=== PATIENT | male | born 1955 | race Caucasian/White ===

== ENCOUNTER 2016-07-11 10:40 | Inpatient (IN) | payer MEDICARE, OTHER ==
[~2016-07-11] VITALS: Ht 170.2 cm; Wt 84.1 kg
[2016-07-11 11:58] LABS: HEMOGLOBIN 13.2 gm/dl (14.0-17.5); RED BLOOD COUNT 4.47 M/UL (4.20-5.50); WHITE BLOOD COUNT 6.8 K/UL (4.5-11.0)
[2016-07-11 12:39] LABS: BUN/CREATININE RATIO 12 (0-10)
[2016-07-11] MEDS ORDERED: PRINIVIL5 MG PO (20:05)
[2016-07-11] MEDS ORDERED: FOLIC ACID 1 MG1 MG PO (20:05)
[2016-07-11] MEDS ORDERED: ZANTAC150 MG PO (20:05)
[2016-07-11] MEDS ORDERED: TEGRETOL 200 M200 MG PO (20:06)
[2016-07-11] MEDS ORDERED: GLUCOPHAGE 500500 MG PO (20:06)
[2016-07-11] MEDS ORDERED: AMMONIUM LACTA140 GM TP (20:07)
[2016-07-11] MEDS ORDERED: ZOCOR5 MG PO (20:07)
[2016-07-11] MEDS ORDERED: DEBROX15 ML OT (20:08)
[2016-07-11] MEDS ORDERED: CLARITIN10 M2 PO (20:08)
[2016-07-12 04:41] LABS: HEMOGLOBIN 13.8 gm/dl (14.0-17.5); RED BLOOD COUNT 4.61 M/UL (4.20-5.50)
[2016-07-12 04:43] LABS: WHITE BLOOD COUNT 9.2 K/UL (4.5-11.0)
[2016-07-12 05:08] LABS: BUN/CREATININE RATIO 18 (0-10)
[2016-07-13] MEDS ORDERED: ECOTRIN81 MG PO (14:28)
[2016-07-13] MEDS ORDERED: ELIQUIS5 MG PO (14:29)
[2016-07-13] MEDS ORDERED: AMIODARONE HCL200 MG PO (14:30)
== END 2016-07-13 15:51 | disposition home or self-care (01) | DRG 309 ==
LOC: ER1 10:40 → ZEROF 15:40 → PROG CARE 15:40 → MED SURG 4 18:17 → PROG CARE 07-12 12:00
PROVIDERS: Emergency Medicine; ADMIT Internal Medicine Infectious Disease
PROC: 4A00X4Z Measurement of Central Nervous Electrical Activity, External Approach (ICD-10-PCS; principal; 2016-07-12)
DX: I48.92 Unspecified atrial flutter (principal); G45.9 Transient cerebral ischemic attack, unspecified; I48.0 Paroxysmal atrial fibrillation; G40.909 Epilepsy, unspecified, not intractable, without status epilepticus; E11.9 Type 2 diabetes mellitus without complications; D64.9 Anemia, unspecified; E78.5 Hyperlipidemia, unspecified; K21.9 Gastro-esophageal reflux disease without esophagitis; I10 Essential (primary) hypertension; F17.290 Nicotine dependence, other tobacco product, uncomplicated; F79 Unspecified intellectual disabilities; E78.00 Pure hypercholesterolemia, unspecified; I44.30 Unspecified atrioventricular block; J30.2 Other seasonal allergic rhinitis; Z79.01 Long term (current) use of anticoagulants; Z79.899 Other long term (current) drug therapy; Z98.49 Cataract extraction status, unspecified eye
CPT/HCPCS: ECHO; 36415; 70450; 70551; 71010; 80048; 80053; 80061; 80156; 81001; 82550; 82553; 82962; 83036; 83690; 83735; 83874; 84439; 84443; 84484; 85025; 85027; 87086; 93005; 93306; 95819; 96374; 99285; G0378; J0282; J2250

== ENCOUNTER → 2016-07-24 | Outpatient (CLI) | payer MEDICARE, OTHER ==
[~2016-07-24] MED LIST: AMIODARONE HCL200 MG PO; AMMONIUM LACTA140 GM TP; CLARITIN10 M2 PO; DEBROX15 ML OT; ECOTRIN81 MG PO; ELIQUIS5 MG PO; FOLIC ACID 1 MG1 MG PO; GLUCOPHAGE 500500 MG PO; PRINIVIL5 MG PO; TEGRETOL 200 M200 MG PO; ZANTAC150 MG PO; ZOCOR5 MG PO
== END ==
LOC: US 13:00
DX: G45.9 Transient cerebral ischemic attack, unspecified (principal)
CPT/HCPCS: 93880

== ENCOUNTER → 2016-09-27 | Outpatient (CLI) | payer MEDICARE, OTHER | LOC: OPSV2 07:28 → EDSTATUS 08:00 | DX: I48.92 Unspecified atrial flutter (principal); I10 Essential (primary) hypertension; E78.5 Hyperlipidemia, unspecified; E11.9 Type 2 diabetes mellitus without complications; F70 Mild intellectual disabilities; F06.30 Mood disorder due to known physiological condition, unspecified; G40.909 Epilepsy, unspecified, not intractable, without status epilepticus; Z72.0 Tobacco use; Z79.02 Long term (current) use of antithrombotics/antiplatelets; Z79.82 Long term (current) use of aspirin; Z79.84 Long term (current) use of oral hypoglycemic drugs; Z79.899 Other long term (current) drug therapy | CPT/HCPCS: 82962; 92960; 93005; J2250; J2310; J3010 ==

== ENCOUNTER → 2016-10-01 | Outpatient (CLI) | payer MEDICARE, OTHER | LOC: HEART 5 10:00 | DX: I48.91 Unspecified atrial fibrillation (principal) ==

== ENCOUNTER 2016-10-08 09:51 | Inpatient (IN) | payer MEDICARE, OTHER ==
[2016-10-08 10:12] LABS: RED BLOOD COUNT 4.64 M/UL (4.20-5.50); WHITE BLOOD COUNT 5.9 K/UL (4.5-11.0)
[2016-10-08 10:39] LABS: BUN/CREATININE RATIO 14 (0-10)
== END 2016-10-08 17:46 | disposition home or self-care (01) | DRG 313 ==
LOC: ER1 09:51 → ZEROF 11:29
PROVIDERS: Family Medicine; ADMIT Internal Medicine Infectious Disease
DX: R07.89 Other chest pain (principal); I95.9 Hypotension, unspecified; I44.0 Atrioventricular block, first degree; F79 Unspecified intellectual disabilities; G31.84 Mild cognitive impairment of uncertain or unknown etiology; G40.909 Epilepsy, unspecified, not intractable, without status epilepticus; I10 Essential (primary) hypertension; E78.5 Hyperlipidemia, unspecified; F17.210 Nicotine dependence, cigarettes, uncomplicated; E11.9 Type 2 diabetes mellitus without complications; K21.9 Gastro-esophageal reflux disease without esophagitis; Z86.79 Personal history of other diseases of the circulatory system
CPT/HCPCS: 36415; 71010; 80053; 82550; 82553; 83874; 84484; 85025; 93005; 96360; 99285; J7050; Q9963

== ENCOUNTER 2016-10-10 10:37 | Emergency (ER) | payer MEDICARE, OTHER ==
[2016-10-10 12:09] LABS: HEMOGLOBIN 12.9 gm/dl (14.0-17.5); RED BLOOD COUNT 4.25 M/UL (4.20-5.50); WHITE BLOOD COUNT 4.6 K/UL (4.5-11.0)
[2016-10-10 12:31] LABS: BUN/CREATININE RATIO 13 (0-10)
== END 2016-10-10 15:15 | disposition home or self-care (01) ==
LOC: ER1 10:37
PROVIDERS: Physician Assistant
DX: R42 Dizziness and giddiness (principal); R07.9 Chest pain, unspecified; E11.9 Type 2 diabetes mellitus without complications; K21.9 Gastro-esophageal reflux disease without esophagitis; I48.91 Unspecified atrial fibrillation; F17.210 Nicotine dependence, cigarettes, uncomplicated; Z79.84 Long term (current) use of oral hypoglycemic drugs; Z86.73 Personal history of transient ischemic attack (TIA), and cerebral infarction without residual deficits
CPT/HCPCS: 36415; 70450; 71020; 80053; 81001; 82550; 82553; 83874; 84484; 85025; 93005; 99285

== ENCOUNTER → 2016-10-11 | Outpatient (CLI) | payer MEDICARE, OTHER | LOC: HEART 5 08:00 | DX: R07.9 Chest pain, unspecified (principal) | CPT/HCPCS: 78452; A9502; J2785 ==

== ENCOUNTER 2021-07-07 14:32 | Emergency (ER) | payer MEDICARE, OTHER ==
[~2021-07-07 14:32] MED LIST changes: +AUGMENTIN 875-1 EACH PO; +B-122500 MCG SL; +CARDIZEM CD120 MG PO; +IMDUR ER TAB 3030 MG PO; +KEPPRA250 MG PO; +NITROSTAT0.4 MG SL; +PRILOSEC OTC20 MG PO
[2021-07-07 15:04] LABS: HEMOGLOBIN 13.7 gm/dl (14.0-17.5); RED BLOOD COUNT 4.53 M/UL (4.20-5.50); WHITE BLOOD COUNT 6.3 K/UL (4.5-11.0)
[2021-07-07 15:33] LABS: BUN/CREATININE RATIO 20 (0-10)
[2021-07-07] MEDS ORDERED: KEPPRA1000 MG PO (16:09)
== END 2021-07-07 16:20 | disposition home or self-care (01) ==
LOC: ER1 14:32
PROVIDERS: Physician Assistant
DX: G40.909 Epilepsy, unspecified, not intractable, without status epilepticus (principal); K21.9 Gastro-esophageal reflux disease without esophagitis; E11.9 Type 2 diabetes mellitus without complications; I10 Essential (primary) hypertension
CPT/HCPCS: 80053; 81001; 85025; 99284

== ENCOUNTER 2021-09-07 19:33 | Emergency (ER) | payer MEDICARE, OTHER ==
[~2021-09-07] VITALS: Ht 170.2 cm; Wt 100.7 kg
[~2021-09-07 19:33] MED LIST changes: +KEPPRA1000 MG PO
[2021-09-07 20:17] LABS: HEMOGLOBIN 13.2 gm/dl (14.0-17.5); RED BLOOD COUNT 4.43 M/UL (4.20-5.50); WHITE BLOOD COUNT 6.4 K/UL (4.5-11.0)
[2021-09-07 20:37] LABS: BUN/CREATININE RATIO 16 (0-10)
== END 2021-09-07 21:35 | disposition home or self-care (01) ==
LOC: ER1 19:33
PROVIDERS: Preventive Medicine Occupational Medicine
DX: G40.909 Epilepsy, unspecified, not intractable, without status epilepticus (principal)
CPT/HCPCS: 71045; 80053; 80307; 82140; 85025; 93005; 96374; 99284; G0480; J1953

== ENCOUNTER 2021-09-17 21:44 | Emergency (ER) | payer MEDICARE, OTHER ==
[2021-09-18 01:13] LABS: HEMOGLOBIN 13.4 gm/dl (14.0-17.5); RED BLOOD COUNT 4.44 M/UL (4.20-5.50); WHITE BLOOD COUNT 6.5 K/UL (4.5-11.0)
[2021-09-18 01:32] LABS: BUN/CREATININE RATIO 17 (0-10)
== END 2021-09-18 00:55 | disposition home or self-care (01) ==
LOC: ER1 21:44
PROVIDERS: Family Medicine
DX: G40.909 Epilepsy, unspecified, not intractable, without status epilepticus (principal); F79 Unspecified intellectual disabilities; E11.9 Type 2 diabetes mellitus without complications; I10 Essential (primary) hypertension
CPT/HCPCS: 70450; 71045; 80053; 81001; 82550; 82553; 83735; 84484; 85025; 93005; 99285